=== PATIENT | male | born 1985 | race American Indian/Alaskan Native ===

== ENCOUNTER 2018-07-08 03:12 | Emergency (ER) | payer OTHER ==
[2018-07-08] MEDS ORDERED: Amoxicillin 500 MG Cap PO ONE (03:26)
--- NOTE | 2018-07-08 03:32 | EDM.PDOC ---
ED HPI GENERAL MEDICAL PROBLEM - General Chief Complaint: ENT Problem Stated Complaint: BROKEN TOOTH Time Seen by Provider: 07/08/18 03:15 Source of Information: Reports: Patient History Limitations: Reports: No Limitations - History of Present Illness INITIAL COMMENTS - FREE TEXT/NARRATIVE: c/o right lower toothache in back molar, has been broke x 6 months unable to get into dentist. Bothering more past week, unable to sleep tonight. no fever or chills. Has been taking ibuprofen and tylenol. Left Lower Gums Pain Score (Numeric/FACES): 4 - Related Data Allergies Allergy/AdvReac Type Severity Reaction Status Date / Time No Known Allergies Allergy Verified 07/08/18 03:17 Home Meds: Home Meds . [No Known Home Meds] 07/08/18 [History] Past Medical History - Past Health History Medical/Surgical History: Denies Medical/Surgical History Social & Family History - Tobacco Use Smoking Status *Q: Never Smoker Second Hand Smoke Exposure: No - Recreational Drug Use Recreational Drug Use: Yes Drug Use in Last 12 Months: Yes Recreational Drug Type: Reports: Marijuana/Hashish Recreational Drug Use Frequency: Rarely ED ROS ENT - Review of Systems Review Of Systems: ROS reveals no pertinent complaints other than HPI. ED EXAM, ENT - Physical Exam Exam: See Below Exam Limited By: No Limitations General Appearance: Alert, Mild Distress Eye Exam: Bilateral Eye: EOMI, PERRL Ears: Normal External Exam, Normal TMs Nose: Normal Inspection Mouth/Throat: Dental Pain, Gum Swelling (mild left posterior medial), Other ( large area decayposterior left lower molaranterior medial surface. ). No: Normal Teeth Head: Atraumatic, Normocephalic Neck: Lymphadenopathy (L) Cardiovascular: Normal Peripheral Pulses, Regular Rate, Rhythm GI/Abdominal: Soft Extremities: Normal Range of Motion Neurological: Alert, Oriented, Normal Cognition Psychiatric: Normal Affect, Normal Mood Skin: Warm, Dry, Intact, Normal Color Course - Vital Signs Last Recorded V/S: Last Vital Signs Temp 97 F 07/08/18 03:14 Pulse 65 07/08/18 03:14 Resp 18 07/08/18 03:14 BP 167/101 H 07/08/18 03:14 Pulse Ox 100 07/08/18 03:14 - Orders/Labs/Meds Meds: Medications Discontinued Medications Generic Name Dose Route Start Last Admin Trade Name Freq PRN Reason Stop Dose Admin Amoxicillin 1,000 mg 07/08/18 03:26 07/08/18 03:37 Amoxil PO 07/08/18 03:27 1,000 mg ONETIME ONE Administration Departure - Departure Time of Disposition: 03:30 Disposition: Home, Self-Care 01 Condition: Good Clinical Impression: Dental caries extending into dentin, Dental abscess - Discharge Information *PRESCRIPTION DRUG MONITORING PROGRAM REVIEWED*: No *COPY OF PRESCRIPTION DRUG MONITORING REPORT IN PATIENT PREM: No Instructions: Dental Abscess, [id number] Forms: ED Department Discharge Additional Instructions: alternate tylenol 650mg and ibuprofen 600mg every 4 hours continue with use of oragel avoid extreme temperature liquids chew on opposite side follow up with dentist amoxicillin 500mg one 4 times daily x 7 days
== END 2018-07-08 03:39 | disposition home or self-care (01) ==
LOC: DL.ED 03:12
DX: K04.7 Periapical abscess without sinus (principal)
CPT/HCPCS: 99282; A9270